=== PATIENT | male | born 1975 | race Caucasian/White ===

== ENCOUNTER 2020-08-01 12:52 | Outpatient (CLI) | payer OTHER, SELFPAY ==
--- NOTE | 2020-08-01 13:46 | CT_ITS ---
WS: [id number] CT ABDOMEN AND PELVIS WITH CONTRAST HISTORY: DIVERTICULITIS TECHNIQUE: Imaging performed of the abdomen and pelvis with IV contrast. Single phase imaging of the abdomen. Coronal and sagittal reformats are submitted. All CT scans at [facility] use at least one of these dose optimization techniques: automated exposure control; mA and/or kV adjustment per patient size (includes targeted exams where dose is matched to clinical indication); or iterativ e reconstruction. IV CONTRAST: Omnipaque 300; 95 mL IV. Oral contrast: No DLP: 1381.97 mGycm COMPARISON: 12/12/2015 Lower thorax: Lung bases are clear. Heart is normal size. No hiatal hernia. Liver/biliary system: Normal size liver. Mild hepatic steatosis. Stable hypodensity toward the RIGHT diaphragmatic surface. Gallbladder: Normal. No gallstones or wall thickening. No pericholecystic fluid. Pancreas: Normal. Spleen: Normal. Adrenal glands: Normal. Right kidney: Normal. Left kidney: Normal. Aorta: Normal. Lymphadenopathy: None. Free fluid: None. GI tract: Normal appendix. No obstructive pattern. No wall thickening or mass identified. No signific ant diverticular disease. There are only a few sigmoid diverticula. There is no evidence for acute di verticulitis. Abdominal wall: Unremarkable abdominal wall. No hernia. Pelvis: Normal. Bones: Unremarkable. CT/CT abdomen pelvis w con* [id number] IMPRESSION: 1. No evidence for diverticulitis. There are few sigmoid diverticula which are not inflamed. 2. Normal appendix. 3. Mild hepatic steatosis. 4. No acute abdominal or pelvic abnormalities are identified.
[2020-08-01] MEDS: iohexol 300 mg/mL 100 mL Btl IV (14:05)
== END 2020-08-01 12:53 | disposition home or self-care (01) ==
PROVIDERS: PCP Nurse Practitioner Family; Visit Provider Nurse Practitioner Family
DX: K57.92 Diverticulitis of intestine, part unspecified, without perforation or abscess without bleeding (principal); K76.0 Fatty (change of) liver, not elsewhere classified
CPT/HCPCS: 74177; Q9967

== ENCOUNTER → 2021-03-07 08:48 | Outpatient (BNVA) | payer OTHER, SELFPAY | PROVIDERS: PCP Nurse Practitioner Family; Visit Provider Urology | DX: N50.811 Right testicular pain (principal); K40.90 Unilateral inguinal hernia, without obstruction or gangrene, not specified as recurrent; Z12.5 Encounter for screening for malignant neoplasm of prostate; Z80.42 Family history of malignant neoplasm of prostate | CPT/HCPCS: 81003; G0103 ==

== ENCOUNTER 2022-05-29 07:59 | Outpatient (CLI) | payer OTHER, SELFPAY | END 2022-05-29 08:00 | disposition home or self-care (01) | LOC: LAB 08:04 | PROVIDERS: PCP Nurse Practitioner Family; Visit Provider Urology | DX: Z12.5 Encounter for screening for malignant neoplasm of prostate (principal); Z80.42 Family history of malignant neoplasm of prostate | CPT/HCPCS: 36415; 84153 ==

== ENCOUNTER 2022-09-19 07:07 | Outpatient (CLI) | payer OTHER, SELFPAY ==
[2022-09-19 07:58] LABS: PSA Screen - Urology 1.31 ng/mL (0-4)
== END 2022-09-19 07:08 | disposition home or self-care (01) ==
LOC: LAB 07:10
PROVIDERS: PCP Nurse Practitioner Family; Visit Provider Urology
DX: Z80.42 Family history of malignant neoplasm of prostate (principal)
CPT/HCPCS: 36415; G0103

== ENCOUNTER 2024-01-28 06:11 | Emergency (ER) | payer OTHER, SELFPAY ==
[2024-01-28 06:15] VITALS: BP 139/89; PULSE 68; RESP 18; TEMP 36.7; O2SAT 96; BMI 33.3
--- NOTE | 2024-01-28 06:19 | XRR_ITS ---
PROCEDURE INFORMATION: Exam: XR Chest Exam date and time: 01/28/2024 6:31 AM Age: 48 years old Clinical indication: Shortness of breath; Additional info: Chest pain TECHNIQUE: Imaging protocol: Radiologic exam of the chest. Views: 1 view. COMPARISON: CR XR chest 2V* [id number] 08/02/2022 12:20 PM FINDINGS: Lungs: Unremarkable. No consolidation. Pleural spaces: Unremarkable. No pleural effusion. No pneumothorax. Heart/Mediastinum: Unremarkable. No cardiomegaly. Bones/joints: Unremarkable. XR/XR chest 1V portable [id number] IMPRESSION: No acute findings.
--- NOTE | 2024-01-28 06:19 | ECG_ITS ---
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 Measurements Intervals [place] Rate: 66 P: 36 OR: 172 QRS: -24 QRSD: 100 T: 6 QT: 403 QTc: 424 Interpretive Statements SINUS RHYTHM BORDERLINE LEFT AXIS DEVIATION [QRS AXIS < -20] MINIMAL VOLTAGE CRITERIA FOR LVH, CONSIDER NORMAL VARIANT [MEETS CRITERIA IN ONE OF: R(aVL), S(V1), R(V5), R(V5/V6)+S(V1)] No previous ECG available for comparison Electronically Signed On 01-28-2024 10:31:32 CDT by Hunter Wilson M.D. [id number]
--- NOTE | 2024-01-28 06:21 | ED_ITS ---
HPI - Neuro Symptoms/Deficit 2 General: Chief Complaint: Neuro Symptoms/Deficit Stated Complaint: chest pains, numbness on left side Time Seen by Provider: 01/28/24 06:13 History of Present Illness: 48-year-old male with a history of hyper tension who presents emergency room with left-sided chest pain and left arm numbness and weakness. He has some pain in his mid thoracic back. He says he woke up this morning about 2 hours ago and had some feelings of anxiety which had went away and then he went to get some coffee and started having pressure in his left chest and numbness in his left arm. This is still present at this time. No cough. No focal motor deficits. No obvious motor deficits. Review of Systems 2 Narrative: Constitutional symptoms: Negative except as documented in HPI. Skin symptoms: Negative except as documented in HPI. Eye symptoms: Negative except as documented in HPI. ENMT symptoms: Negative except as documented in HPI. Respiratory symptoms: Negative except as documented in HPI. Cardiovascular symptoms: Negative except as documented in HPI. Gastrointestinal symptoms: Negative except as documented in HPI. Genitourinary symptoms: Negative except as documented in HPI. Musculoskeletal symptoms: Negative except as documented in HPI. Neurologic symptoms: Negative except as documented in HPI. Psychiatric symptoms: Negative except as documented in HPI. Endocrine symptoms: Negative except as documented in HPI. PFSH ED 2 PFSH: Family History (Updated 09/26/22 @ 09:52 by Mireya Alcala LPN) Father Cancer prostate Mother Healthy adult Social History Smoking and tobacco/nicotine status: never used tobacco/nicotine Alcohol intake: never Substance/Drug Use: never Marital status: Current occupational status: employed Physical Exam 2 Narrative: EXAM NARRATIVE: General: Alert, no acute distress. Skin: Warm, dry. Head: Normocephalic, atraumatic. Neck: Supple, trachea midline. Eye: Extraocular movements are intact. Ears, nose, mouth and throat: mucosa moist. Cardiovascular: Regular, Normal peripheral perfusion. Respiratory: Lungs are clear to auscultation, respirations are non-labored, breath sounds are equal, Symmetrical chest wall expansion. Gastrointestinal: Soft, Nontender, Non distended Musculoskeletal: Normal ROM, no deformity. Neurological: Alert and oriented, No focal neurological deficit observed. Psychiatric: Cooperative, appropriate mood & affect. Course 2 Vital Signs: Vital signs: Vital Signs Temperature 98.0 F 01/28/24 06:15 Pulse Rate 57 L 01/28/24 09:15 Respiratory Rate 18 01/28/24 06:15 Blood Pressure 126/93 01/28/24 09:15 Pulse Oximetry 92 01/28/24 09:15 Oxygen Delivery Me thod Room Air 01/28/24 06:15 MDM - Neuro Symptoms/Deficit Medical Decision Making Differential diagnosis for patient with chest pain includes but is not limited to and based on the above HPI, review of systems and physical exam: Pneumonia. unstable angina. angina. Acute coronary syndrome / [place]. Pulmonary embolism. Costochondritis / musculoskeletal. Pleurisy. Pericarditis. Esophageal spasm. Pancreatis. Cholecystitis. Orders placed to evaluate differential diagnosis based on the above differential, HPI and physical exam EKG: Time 6:14 AM. Rate 66. Normal sinus rhythm, No ST-T changes, no ectopy, normal MI & QRS intervals, This was reviewed and interpreted by myself the ER physician at 6:16 AM Repeat EKG: Time 8:22 AM. Rate 56. Sinus bradycardia, No ST-T changes, no ectopy, normal MI & QRS intervals, This was reviewed and interpreted by myself the ER physician at 8:24 AM. Rate has decreased by 10 bpm and he is now slightly bradycardic. Chest x-ray: No acute process. No infiltrate. No pneumothorax. This was reviewed and interpreted by myself the ER physician. CT head: No acute intracranial process. no intracranial hemorrhage, no evidence of infarct. no evidence of acute fracture.This was reviewed and interpreted by myself the ER physician. HEART Pathway for Early Discharge in Acute Chest Pain from [email or web address] on 01/28/2024 All calculations should be rechecked by clinician prior to use RESULT SUMMARY: 3 points HEART Pathway Score Low risk 0.9-1.7% 30-day MACE Repeat troponin at 3 hours and if negative, discharge home with outpatient follow-up. INPUTS: History ?> 1 = Moderately suspicious EKG ?> 0 = Normal Age ?> 1 = 45-64 Risk factors ?> 1 = 1-2 risk factors Initial troponin ?> 0 = <=ormal limit Lab Review: Laboratory results were reviewed and interpreted by myself the emergency room physician. Lab work is unremarkable. No leukocytosis. White count of 6.7. Hemoglobin is slightly elevated at 16.6. BUN and creatinine are 10 and 0.9. Serial cardiac markers are negative. I reviewed the patient's medical record. Reexamination: Patient remained stable. He did have some sleep apnea type symptoms while here. He was sleeping and his oxygen saturations dipped into the low 90s and upper 80s. We discussed to follow-up with his primary and a possible sleep study in the near future. No altered mental status. No focal motor deficits. No shortness of breath. Assessment and plan: Noncardiac chest pain Obstructive sleep apnea - Discharged home - Discussed findings and plan with patient. Answered any questions. - All laboratory values were reviewed and interpreted personally by myself, the ER physician - All imaging was reviewed and interpreted personally by myself, the ER physician. - Evaluation and treatment of this problem were appropriate in the emergency setting Lab Data 01/28/24 06:25 01/28/24 06:25 Radiology Impressions Chest X-Ray 01/28/24 06:19 IMPRESSION: No acute findings. Head CT 01/28/24 06:22 IMPRESSION: No acute intracranial abnormality. Laboratory Results WBC 6.69 10^3/uL (3.29-11.43) 01/28/24 06:25 RBC 5.47 10^6/uL (3.85-5.65) 01/28/24 06:25 Hgb 16.60 g/dL (11.27-16.99) 01/28/24 06:25 Hct 46.5 % (37-53) 01/28/24 06:25 MCV 85.0 fl (82-101) 01/28/24 06:25 MCH 30.3 pg (27-33) 01/28/24 06:25 MCHC 35.7 g/dL (30-55) 01/28/24 06:25 RDW 11.6 % (12.1-15.1) L 01/28/24 06:25 Plt Count 356 10^3/cmm (157-399) 01/28/24 06:25 MPV 8.9 fL (7.4-10.4) 01/28/24 06:25 Neut % (Auto) 45.7 % 01/28/24 06:25 Lymph % (Auto) 42.9 % 01/28/24 06:25 [place] % (Auto) 7.6 % 01/28/24 06:25 Eos % (Auto) 3.1 % 01/28/24 06:25 Baso % (Auto) 0.4 % 01/28/24 06:25 Neut # (Auto) 3.05 10^3/uL (1.8-7.7) 01/28/24 06:25 Lymph # (Auto) 2.9 10^3/uL (0.8-4.8) 01/28/24 06:25 [place] # (Auto) 0.5 10^3/uL (0.2-0.9) 01/28/24 06:25 Eos # (Auto) 0.2 10^3/uL (0.0-0.8) 01/28/24 06:25 Baso # (Auto) 0.0 10^3/uL (0.0-0.1) 01/28/24 06:25 Nucleated RBC % (auto) 0 % 01/28/24 06:25 Nucleated RBCs # 0.0 /100WBC 01/28/24 06:25 Sodium 143 mmol/L (136-145) 01/28/24 06:25 Potassium 4.2 mmol/L (3.5-5.1) 01/28/24 06:25 Chloride 107 mmol/L (98-107) 01/28/24 06:25 Carbon Dioxide 23 mmol/L (22-29) 01/28/24 06:25 Anion Gap 17.2 (5-19) 01/28/24 06:25 BUN 10 mg/dL (6-20) 01/28/24 06:25 Creatinine 0.9 mg/dL (0.7-1.2) 01/28/24 06:25 GFR Calculation 90.1 mL/min (90-130) 01/28/24 06:25 Glucose 104 mg/dL (65-115) 01/28/24 06:25 Calculated Osmolality 295 mOsm/kg (285-295) 01/28/24 06:25 Calcium 9.3 mg/dL (8.5-10.5) 01/28/24 06:25 Total Bilirubin 0.4 mg/dL (0.15-1.2) 01/28/24 06:25 AST 23 U/L (0-40) 01/28/24 06:25 ALT 31 U/L (0-41) 01/28/24 06:25 Alkaline Phosphatase 113 U/L (40-130) 01/28/24 06:25 Troponin T Baseline 8 ng/L (0-15) 01/28/24 06:25 Troponin T 120 Minute 7.26 ng/L (0-15) 01/28/24 08:25 Delta Troponin T -0.74 ABS# (0-10) L 01/28/24 08:25 Total Protein 7.2 g/dL (6.6-8.7) 01/28/24 06:25 Albumin 4.6 g/dL (3.5-5.2) 01/28/24 06:25 Globulin 2.6 g/dL (1.3-4.6) 01/28/24 06:25 All radiology interpretation(s) finalized by discharge Discharge Plan Discharge Patient Disposition: Home Clinical Impression: Non-cardiac chest pain Condition: Stable Prescriptions: No Action metoprolol succinate 50 mg tablet extended release 24 hr 50 mg PO DAILY amlodipine 10 mg tablet 10 mg PO DAILY benazepril-hydrochlorothiazide 10-12.5 mg tablet 1 tab PO DAILY sertraline 50 mg tablet 50 mg PO DAILY Discharge Orders: Discharge ED (Routine); Ordered 01/28/24 Ordered By: Raven Salazar Referrals: Alessandra Reddy FNP [Primary Care Provider] - 1-3 days (Please call for follow-up appointment. You may need a stress test. Also a sleep study would be appropriate) Discharge Diet: Usual diet Discharge Activity: Increase activity as tolerated Patient Instructions: Noncardiac Chest Pain (ED) Activity Restrictions/Additional Instructions: Thank you for choosing [facility] for your healthcare needs today. Please realize this is an emergency room and that we are providing you with a medical screening exam and this may not be complete and all inclusive of all the testing and or work up that you may need to determine your ailment or severity of your illness. You have been screened and evaluated and felt safe for discharge. Health conditions do change or evolve sometimes and as such it is important that you follow up with your Primary Doctor to be re checked, 3-5 days is a general good time frame for follow up. You are always welcome to return to the ED for re assessment if your symptoms are worsening or you have new concerns Coding Level of Care Code ED Plow Holder for Augustin Moreno
--- NOTE | 2024-01-28 06:22 | CTR_ITS ---
PROCEDURE INFORMATION: Exam: CT Head Without Contrast Exam date and time: 01/28/2024 6:25 AM Age: 48 years old Clinical indication: Weakness, extremity; Left; Additional info: Left arm weakness and numbness TECHNIQUE: Imaging protocol: Computed tomography of the head without contrast. Radiation optimization: All CT scans at this facility use at least one of these dose optimization techniques: automated exposure control; mA and/or kV adjustment per patient size (includes targeted exams where dose is matched to clinical indication); or iterative reconstruction. COMPARISON: No relevant prior studies available. RADIATION DOSE METRICS: Total DLP (mGy-cm): 1190.52 FINDINGS: Brain: Normal. No hemorrhage. Unremarkable white matter. No mass effect. Cerebral ventricles: No ventriculomegaly. Paranasal sinuses: Visualized sinuses are unremarkable. No fluid levels. Mastoid air cells: Visualized mastoid air cells are well aerated. Bones: Unremarkable. No acute fracture. Soft tissues: Unremarkable. CT/CT head wo con* [id number] IMPRESSION: No acute intracranial abnormality.
[2024-01-28 06:33] LABS: Basophils % 0.4 %; Eosinophils # 0.2 10^3/uL (0.0-0.8); Eosinophils % 3.1 %; Hematocrit 46.5 % (37-53); Lymphocytes # 2.9 10^3/uL (0.8-4.8); Lymphocytes % 42.9 %; Mean Corpuscular HGB Conc 35.7 g/dL (30-55); Mean Corpuscular Hemoglobin 30.3 pg (27-33); Mean Platelet Volume 8.9 fL (7.4-10.4); Monocytes # 0.5 10^3/uL (0.2-0.9); Monocytes % 7.6 %; Neutrophils # 3.05 10^3/uL (1.8-7.7); Neutrophils % 45.7 %; Nucleated Red Blood Cells % 0 %; Platelet Count 356 10^3/cmm (157-399); Red Blood Count 5.47 10^6/uL (3.85-5.65); Red Cell Distribution Width 11.6 % (12.1-15.1); White Blood Count 6.69 10^3/uL (3.29-11.43)
[2024-01-28 06:49] LABS: Alanine Aminotransferase 31 U/L (0-41); Albumin Level 4.6 g/dL (3.5-5.2); Alkaline Phosphatase 113 U/L (40-130); Aspartate Amino Transferase 23 U/L (0-40); Blood Urea Nitrogen 10 mg/dL (6-20); Calcium 9.3 mg/dL (8.5-10.5); Carbon Dioxide 23 mmol/L (22-29); Chloride 107 mmol/L (98-107); Creatinine Clr Calc Pharmacy 136.9971; Globulin 2.6 g/dL (1.3-4.6); Glomerular Filtration Rate 90.1 mL/min (90-130); Glucose 104 mg/dL (65-115); Osmolality Calculated 295 mOsm/kg (285-295); Sodium 143 mmol/L (136-145); Total Bilirubin 0.4 mg/dL (0.15-1.2); Total Protein 7.2 g/dL (6.6-8.7); Troponin(5th) Baseline 8 ng/L (0-15)
[2024-01-28 07:20] VITALS: BP 129/84; PULSE 58; O2SAT 90
[2024-01-28 07:47] LABS: Anion Gap 17.2 (5-19); Potassium 4.2 mmol/L (3.5-5.1)
[2024-01-28 08:15] VITALS: BP 131/96; PULSE 54; O2SAT 93
--- NOTE | 2024-01-28 08:22 | ECG_ITS ---
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 Measurements Intervals [place] Rate: 56 P: 63 [place]: 187 QRS: -21 QRSD: 98 T: 9 QT: 438 QTc: 425 Interpretive Statements SINUS BRADYCARDIA BORDERLINE LEFT AXIS DEVIATION [QRS AXIS < -20] Compared to ECG 01/28/2024 06:14:23 Sinus rhythm no longer present Electronically Signed On 01-28-2024 10:33:19 CDT by Hunter Wilson M.D. [id number]
[2024-01-28 08:45] VITALS: PULSE 63; O2SAT 91
[2024-01-28 09:15] VITALS: BP 126/93; PULSE 57; O2SAT 92
[2024-01-28 09:18] LABS: Troponin 5 2HR 7.26 ng/L (0-15)
[2024-01-28 09:22] LABS: Troponin 5 2HR Delta -0.74 ABS# (0-10)
[2024-01-28 09:47] VITALS: BP 129/91; PULSE 63; O2SAT 95
== END 2024-01-28 09:49 | disposition home or self-care (01) ==
PROVIDERS: Emergency Provider Emergency Medicine; PCP Nurse Practitioner Family
DX: R07.89 Other chest pain (principal)
CPT/HCPCS: 36415; 70450; 71045; 80053; 84484; 85025; 93005; 99285

== ENCOUNTER 2024-04-28 14:17 | Outpatient (CLI) | payer OTHER, SELFPAY | END 2024-04-28 14:18 | disposition home or self-care (01) | LOC: SLEEP 14:18 | PROVIDERS: PCP Nurse Practitioner Family; Visit Provider Nurse Practitioner Family | DX: G47.33 Obstructive sleep apnea (adult) (pediatric) (principal); G47.36 Sleep related hypoventilation in conditions classified elsewhere | CPT/HCPCS: G0399 ==

== ENCOUNTER 2025-04-06 05:00 | Outpatient (RCR) | payer OTHER, SELFPAY | END 2025-05-06 23:55 | disposition home or self-care (01) | LOC: SPT 05:00 | PROVIDERS: Visit Provider Orthopaedic Surgery Sports Medicine | DX: Z98.890 Other specified postprocedural states (principal) | CPT/HCPCS: 97110; 97161 ==

== ENCOUNTER 2025-05-07 06:30 | Outpatient (RCR) | payer OTHER, SELFPAY | END 2025-06-05 23:59 | disposition home or self-care (01) | LOC: SPT 06:30 | PROVIDERS: Visit Provider Orthopaedic Surgery Sports Medicine | DX: Z98.890 Other specified postprocedural states (principal) | CPT/HCPCS: 97110; 97140 ==

== ENCOUNTER 2025-06-06 05:00 | Outpatient (RCR) | payer OTHER, SELFPAY | END 2025-07-06 23:59 | disposition home or self-care (01) | LOC: SPT 05:00 | PROVIDERS: Visit Provider Orthopaedic Surgery Sports Medicine | DX: Z98.890 Other specified postprocedural states (principal) | CPT/HCPCS: 97110 ==